=== PATIENT | female | born 1940 | race Caucasian/White ===

== ENCOUNTER 2023-04-11 17:31 | Emergency (ER) | payer MEDICARE, OTHER ==
[~2023-04-11] VITALS: Ht 154.9 cm; Wt 56.8 kg
[2023-04-11 17:52] VITALS: TEMP 98.5
[2023-04-11] MEDS ORDERED: MELA5TAB21 PO (18:06)
[2023-04-11] MEDS ORDERED: AMLO-143 PO (18:06)
[2023-04-11] MEDS ORDERED: BUSP5TAB20 PO (18:06)
[2023-04-11] MEDS ORDERED: NA P133E4 PR (18:06)
[2023-04-11] MEDS ORDERED: BISA10SU11 PR (18:06)
[2023-04-11] MEDS ORDERED: ATOR20TA PO (18:06)
[2023-04-11] MEDS ORDERED: LOSA-381 PO (18:06)
[2023-04-11] MEDS ORDERED: ASCO500 PO (18:06)
[2023-04-11] MEDS ORDERED: ASPI81TA87 PO (18:06)
[2023-04-11] MEDS ORDERED: METO25XL PO (18:06)
[2023-04-11] MEDS ORDERED: MEMA5 PO (18:06)
[2023-04-11] MEDS ORDERED: GABA-1181 PO (18:06)
[2023-04-11] MEDS ORDERED: IPRA3AMP24 NEB (18:06)
[2023-04-11] MEDS ORDERED: MAGN-169 PO (18:06)
[2023-04-11] MEDS ORDERED: FAMO20 PO (18:06)
[2023-04-11] MEDS ORDERED: NITR-75 PO (18:06)
[2023-04-11] MEDS ORDERED: LACT-294 PO (18:06)
[2023-04-11 18:36] LABS: BASOPHILS % (AUTO) 0.4 % (0.0-2.0); HEMATOCRIT 36.5 % (36-46); HEMOGLOBIN 11.7 g/dL (12.0-16.0); LYMPHOCYTES # (AUTO) 2.2 K/uL (1.0-4.8); MEAN CORPUSCULAR HEMOGLOBIN 27.6 pg (26.0-34.0); MEAN CORPUSCULAR HGB CONC 32.1 G/dL (31.0-37.0); MEAN CORPUSCULAR VOLUME 86 fL (80-100); MONOCYTES # (AUTO) 0.8 K/uL (0.1-1.0); MONOCYTES % (AUTO) 13.8 % (2.0-9.0); NEUTROPHILS # (AUTO) 1.8 K/uL (1.8-7.7); NEUTROPHILS % (AUTO) 32.8 % (40.0-70.0); PLATELET COUNT (AUTO) 215 K/uL (150-450); RED BLOOD CELL COUNT(AUTO) 4.24 MIL/uL (4.00-5.20); RED CELL DISTRIBUTION WIDTH 17.6 % (11.5-14.5)
[2023-04-11 18:45] LABS: CALCIUM, TOTAL 8.3 mg/dL (8.8-10.5); CREATININE 1.4 mg/dL (0.60-1.30); POTASSIUM 5.6 mmol/L (3.5-5.1)
[2023-04-11 20:43] VITALS: BP 155/82; PULSE 65; RESP 16
== END 2023-04-11 23:36 | disposition home or self-care (01) ==
LOC: EMS 17:32
DX: E87.5 Hyperkalemia (principal); I10 Essential (primary) hypertension; F03.90 Unspecified dementia, unspecified severity, without behavioral disturbance, psychotic disturbance, mood disturbance, and anxiety
CPT/HCPCS: 80048; 85025; 93005; 99284